=== PATIENT | male | born 1970 | race Caucasian/White ===

== ENCOUNTER 2017-09-16 21:51 | Inpatient (IN) | payer MEDICAID ==
[~2017-09-16] VITALS: Ht 180.3 cm; Wt 127.0 kg
[2017-09-16 21:51] VITALS: BP_SYST 149
--- NOTE | 2017-09-16 21:51 | NUR ---
PT BIBA TO BED 4 FOR EVALUATION. SEIZURE PADS TO BED DONE
--- NOTE | 2017-09-16 21:55 | NUR ---
Pt is awake, alert but slightly confused. Pt states he does not remember having a seizure. Report from EMT that pt [facility] two [facility] a [facility]. Tounge appears to have been bitten during seizure, light blood noted, no other signs of injury noted. Pain stated 5/10 from tounge. No signs of SOB or acute distress noted. Seizure pads applied. Will continue to monitor.
--- NOTE | 2017-09-16 22:37 | NUR ---
ER MD PEARL AT BEDSIDE EXAMINING PATIENT.
[2017-09-16 23:20] LABS: HEMATOCRIT 33.9 % (36-54); HEMOGLOBIN 10.5 g/dL (14.0-18.0); MEAN CORPUSCULAR HEMOGLOBIN 22 pg (27-31); MEAN CORPUSCULAR HGB CONC 31 % (32-36); MEAN CORPUSCULAR VOLUME 72 fL (79.0-98.0); PLATELET COUNT (AUTO) 140 K/uL (130-430); RED BLOOD CELL COUNT(AUTO) 4.71 MIL/uL (4.2-6.2); RED CELL DISTRIBUTION WIDTH 22.4 % (9.0-15.0); WHITE BLOOD COUNT (AUTO) 5.3 K/uL (4.8-10.8)
[2017-09-16 23:33] LABS: CALCIUM 9.9 mg/dL (8.4-11.0); CREATININE 1.01 mg/dL (0.55-1.30); POTASSIUM 3.8 mmol/L (3.5-5.1)
[2017-09-16 23:38] LABS: ALBUMIN 4.5 g/dL (3.4-4.8)
[2017-09-16 23:44] LABS: BARBITURATE, URINE NEGATIVE (NEG <=200); BENZODIAZEPINE, URINE NEGATIVE (NEG <=150); CANNABINOID, URINE NEGATIVE (NEG <=50); COCAINE, URINE NEGATIVE (NEG <=150); METHAMPHETAMINES SCREEN,URINE NEGATIVE (NEG <=500); OPIATE, URINE NEGATIVE (NEG <=100); PHENCYCLIDINE SCREEN,URINE NEGATIVE (NEG <=25); UR TRICYCLIC ANTIDEPRESSANTS NEGATIVE (NEG <=300); URINE AMPHETAMINE NEGATIVE (NEG <=500); URINE METHADONE NEGATIVE (NEG <=200); URINE OXYCODONE SCREEN NEGATIVE (NEG <=100); URINE PROPOXYPHENE SCREEN NEGATIVE (NEG <=300)
[2017-09-16 23:45] LABS: BILIRUBIN,URINE 2+ (NEGATIVE); CLARITY/URINE CLEAR (CLEAR); COLOR,URINE YELLOW (YELLOW); GLUCOSE,URINE NEGATIVE (NEGATIVE); KETONES,URINE 2+ (NEGATIVE); LEUKOCYTE ESTERASE ,URINE NEGATIVE (NEGATIVE); NITRITE, URINE NEGATIVE (NEGATIVE); PROTEIN URINE 2+ (NEGATIVE)
[2017-09-16 23:46] LABS: BLOOD, URINE TRACE (NEGATIVE)
[2017-09-16 23:51] LABS: BACTERIA,URINE FEW /HPF (None Seen); FINE GRANULAR CASTS,URINE 0-10 /LPF (None Seen); HYALINE CASTS, URINE 0-10 /LPF (None Seen); MUCUS,URINE 1+ /LPF (None Seen); RBC,URINE 0-3 /HPF (0-3)
[2017-09-17 00:02] LABS: BAND % (MANUAL) 1 % (0-6); BASOPHILS % (MANUAL) 0 % (0-2); EOSINOPHILS % (MANUAL) 0 % (0-7); LYMPHOCYTES % (MANUAL) 9 % (20-46); MONOCYTES % (MANUAL) 2 % (0-11)
[2017-09-17] MEDS ORDERED: levETIRAcetam 500 MG TABLET PO ONE (00:45)
--- NOTE | 2017-09-17 01:15 | NUR ---
Patient will be admitted to care of Dr. Duffy. Admitted to tele unit. VSS. Medicated with Keppra before transfer per MD order. Belongings list completed. Summary report printed. Report will be given at bedside.
--- NOTE | 2017-09-17 01:17 | NUR ---
ADMISSION NOTE Received patient from ER via gurney. Patient admitted with diagnosis of seizure. Patient is awake, alert, oriented X 4. Patient oriented to hospital room, call light, toileting, pain management and safety-teach back done. Patient informed that BHAVIK Dumont will be his nurse and that his room number is 134-B. Personal belongings checked and Belongings List documented. Call light within reach.
[2017-09-17 01:23] VITALS: BP_SYST 125
--- NOTE | 2017-09-17 01:57 | NUR ---
[facility] STAFF MEMBER NOTE 0117 RECEIVED PATIENT FROM THE ER VIA STRETCHER ACCOMPANIED BY TWO ER STAFF. PATIENT AWAKE, ALERT, AOX4 BUT STATES THAT HE IS HAVING SOME MEMORY LOSS AND CAN'T REMEMBER HOW HE GOT IN HERE AND HOW HE WENT TO RIDE THE AMBULANCE, OR IF HE HAD AN INCIDENCE OF FALL DURING THE SEIZURE. PATIENT DOES NOT DECLARE ANY FALL AT THE MOMENT NO FAMILY MEMBER TO CONFIRM. PATIENT STATES THAT HE IS CURRENTLY HAVING PAIN OF 8/10 ON THE ABDOMINAL AREA AND TO HIS TONGUE BECAUSE HE BIT HIS TONGUE DURING THE SEIZURE. 0130 MAINTAINED PATIENT ON ROOM 135, FOR OBSERVATION, OFFERED GOWN AND MAINTAINED SAFETY PRECAUTION MAINTAINED PADDED SIDE RAILS BED ON THE LOWEST POSITION, BED ALARM ON. ORIENTED TO THE UNIT POLICIES AND VERBALIZED UNDERSTANDING. ENCOURAGED RELAXATION AND DEEP BREATHING EXERCISES. ENCOURAGED TO REPORT ANY UNTOWARD S/SX NOTED. WILL CONTINUE TO MONITOR THE PATIENT, CALL LIGHT WITHIN REACH. OFFERED WATER FOR THE PATIENT AND REFUSED TO EAT FOR NOW. 0150 MOVED THE PATIENT TO ROOM 134 B
--- NOTE | 2017-09-17 01:59 | NUR ---
Paged Dr. Duffy Paged Dr. Duffy, dialed [phone], s/w Ewa.
--- NOTE | 2017-09-17 02:51 | NUR ---
RN ROUNDS PATIENT ON BED SLEEPING AND RESTING SEEMS TO BE NOT IN PAIN, STILL WAITING FOR MD'S ROXI WILL CONTINUE TO MONITOR.
--- NOTE | 2017-09-17 03:58 | NUR ---
Second Call for Dr. Duffy Second Call for Dr. Duffy, dialed [phone], s/w Ewa.
--- NOTE | 2017-09-17 04:00 | NUR ---
RN ROUNDS PATIENT AWAKE AD ALERT, STILL WITH PAIN OF 8/10 ON THE ABDOMEN AND ON THE BACK. PAGED MD WILL WAIT FOR THE CALL. PATIENT MAINTAINED ON SAFETY PRECAUTION. CALL LIGHT WITHIN REACH.
--- NOTE | 2017-09-17 04:17 | NUR ---
CALLED DR. CASTANEDA CALLED AND ORDERED PAIN MEDICATION AND CHANGE OF ORDERS. WILL CARRY OUT ORDERS AND NOTED.
[2017-09-17] MEDS ORDERED: HYDROcodone/ACETAMIN 5-325 MG TAB (NORCO/ VICODIN) PO PRN (04:30)
[2017-09-17] MEDS: HYDROcodone/ACETAMIN 10-325 MG TAB PO PRN ×2 (04:40→10:41)
[2017-09-17] MEDS: LORazepam 2 MG/ML VIAL IVP PRN ×2 (04:41→21:27)
--- NOTE | 2017-09-17 06:20 | NUR ---
Closing notes Pt asleep, easily arousable. No s/s of distress or discomfort noted. Pt denies any pain at this time. Seizure precaution maintained in place. Call light within reach. To endorse to am nurse.
--- NOTE | 2017-09-17 07:40 | NUR ---
AM rounds Patient resting in bed, awake, alert and oriented x4, denies pain, assessment complete, patient stated that he had a seizure prior to admission and whenever he has a seizure he suffers from memory loss as well, patient also stated that he hasn't taken his medications in about 5 months as well, discussed the plan of care with the patient, educated him on seizure precautions and fall precautions and educated him on how to call for assistance using the call light system, patient verbalized understanding at this time, call light placed within reach, fall, aspiration and seizure precautions in place, continuing to monitor.
--- NOTE | 2017-09-17 08:28 | NUR ---
RN Rounds/Medication Patient resting in bed, awake, denies pain, educated on medication, uses and potential side effects, patient verbalized understanding and tolerated well, provided the patient with milk and orange juice per his request, no other needs at this time, bed in lowest position, three side rails up, bed alarm on, call light within reach, fall and seizure precautions in place, continuing to monitor.
[2017-09-17 08:32] VITALS: BP_SYST 147
[2017-09-17] MEDS ORDERED: levETIRAcetam 500 MG TABLET PO SCH (09:00)
--- NOTE | 2017-09-17 10:44 | NUR ---
Rounds/pain medication Patient resting in bed, states that he has a stomachache and headache, educated the patient on pain management and on pain medication and potential side effects, patient verbalzied understanding and tolerated well. Spoke with the patient about what precipitates his seizures, he stated that he gets a funny taste in his mouth and can small an odd smell, I informed the patient to call me if this happens and that we do have medication available for seizures if this were to happen, patient verbalized understanding at this time, bed in lowest position, three side rails up, bed alarm on, bed close to nurse's station, fall, aspiration, and seizure precautions in place, continuing to monitor.
[2017-09-17 12:12] VITALS: BP_SYST 119
--- NOTE | 2017-09-17 13:10 | NUR ---
RN Rounds patient resting in bed, awake, denies pain, stable condition, patient requesting to speak with director social welfare for assistance, will inform Tanker Service Attendant/Case Management, patient has no other needs at this time, bed in lowest position, three side rails up, bed alarm on, call light within reach, fall, aspiration and seizure precautions in place, continuing to monitor.
--- NOTE | 2017-09-17 15:18 | NUR ---
RN Rounds patient resting in bed, denies pain at this time, gave patient hospital phone to use to call his girlfriend and update her, Manager Research Development met with the patient at bedside to discuss homeless detention options and possible transportation as well once MD is ready to discharge the patient, patient has no other needs at this time, continuing to monitor him, bed in lowest position, three side rails up, bed alarm on, fall, aspiration and seizure precautions in place.
[2017-09-17 16:17] VITALS: BP_SYST 113
--- NOTE | 2017-09-17 16:55 | NUR ---
Dr. Duffy rounds/med list requested for me to call the patient's preferred pharmacy for current list of medications. Called [facility] in [place] (on [address]) [phone] for patient information, fax received with patient med list and shown to Dr. Duffy who will go ahead and give the medication (Dilantin 100mg) to the patient while he is here and MD ordered a Neuro Consult as well, will follow up.
--- NOTE | 2017-09-17 17:30 | NUR ---
Called pharmacy to verify one time dose of Dilantin 100mg, will follow up as needed. Addendum: 09/17/17 at 1818 by Farhan Atkinson RN Called Pharmacy again to verify medication, will follow up as needed.
[2017-09-17] MEDS ORDERED: PHENYTOIN 100 MG CAPSULE PO ONE (18:30)
--- NOTE | 2017-09-17 18:44 | NUR ---
Closing note/x1 dose Dilantin Patient resting in bed, awake, denies pain, educated on seizure medication and potential side effects, patient states he is familiar with this medication as he was taking it before, patient tolerated well, all needs met, will endorse report to NOC shift nurse, bed in lowest position, three side rails up, bed alarm on, call light within reach, fall, aspiration and seizure precautions in place.
--- NOTE | 2017-09-17 19:20 | NUR ---
rn opening note Delayed charting due to patient care. Report was endorsed by day nurse at bed side. Patient is awake and alert, laying in bed, no signs of any distress, breathing is equal and non labored. Patient has call light with him, educated to use for assistance. Patient has seizure precautions in place. Will continue to monitor.
[2017-09-17 20:00] VITALS: BP_SYST 135
[2017-09-17] MEDS: PHENYTOIN 100 MG CAPSULE PO SCH (21:23)
--- NOTE | 2017-09-17 21:31 | NUR ---
Medication/agitation Addendum: 09/18/17 at 0029 by Kanwal Rivera RN Delayed charting due to patient care.Patients scheduled medication given per order. Patient states he is having some anxiety medicated per order. Educated patient on seizure precautions, patient states he gets a weird taste in his mouth before having a seizure, educated to call for assistance if this happens. Patient has no other needs at this time.All safety precautions in place. Call light is with him.Will continue to monitor.
--- NOTE | 2017-09-17 22:57 | NUR ---
CONSULT CONSULT CALLED FOR DR. MONSTER Santana SPOKE WITH LIONEL CASTELLANOS REASON FOR CONSULT: SEIZURES REQUESTING CONSULT: DR. PATY HAGEN I CALLED [phone]
--- NOTE | 2017-09-17 23:45 | NUR ---
RN rounding Patient is awake and laying in bed with no signs of any distress, breathing is equal and non labored. Patient has call light with him, educated to use for assistance. Patient is stable. Patient educated on NPO at 0000 for Abdominal US in am. Patient verbalized understanding. Patient has no other needs at this time. Will continue to monitor.
[2017-09-18 00:34] VITALS: BP_SYST 139
--- NOTE | 2017-09-18 01:15 | NUR ---
RN rounding Patient appears to be resting with both eyes closed visible chest rise and fall, no signs of any distress, breathing is equal and non labored. Patient has call light with him, all safety precautions in place. Patient is stable will continue to monitor hourly.
--- NOTE | 2017-09-18 03:20 | NUR ---
rn rounding Patient is laying in bed no signs of any distress, breathing is equal and non labored. Patient has all safety precautions,call light is with him, educated brickmason contractor light for assistance, educated to call if patient has any signs of a seizure precautions . Patient is stable with no other needs at this time. Will continue to monitor.
--- NOTE | 2017-09-18 05:44 | NUR ---
RN rounding Patient is awake and laying in bed no signs of any distress, his breathing is equal and non labored. Patient requesting to be bathed later on in the morning, educated i will let the DRILLING FLUIDS SPECIALIST know so they can endorse it to the next shift. Patient has call light with him educated to use for assistance. Patient is stable with no other needs at this time. Will continue to monitor.
--- NOTE | 2017-09-18 06:50 | NUR ---
rn closing note Patient appears to be resting with both eyes closed no signs of any distress, breathing is equal and non labored. Patient has call light with him, all safety precautions and seizure precautions in place. Patient is stable has no other needs at this time. Will endorse report to oncoming day nurse at bedside.
[2017-09-18 07:34] LABS: CALCIUM 9.5 mg/dL (8.4-11.0); CREATININE 0.6 mg/dL (0.55-1.30); PHENYTOIN (DILANTIN) 3.4 ug/mL (10.0-20.0); POTASSIUM 3.5 mmol/L (3.5-5.1); TOTAL BILIRUBIN 1.1 mg/dL (0.0-1.0)
[2017-09-18 07:35] LABS: BASOPHILS # (AUTO) 0.1 K/uL (0.0-0.2); BASOPHILS % (AUTO) 1.1 % (0.0-2.0); EOSINOPHILS # (AUTO) 0.2 K/uL (0.0-0.4); EOSINOPHILS % (AUTO) 3.3 % (0.0-4.0); HEMOGLOBIN 10.3 g/dL (14.0-18.0); LYMPHOCYTES # (AUTO) 1.2 K/uL (1.0-5.5); LYMPHOCYTES % (AUTO) 25.6 % (20.5-51.5); MEAN CORPUSCULAR HEMOGLOBIN 22 pg (27-31); MEAN CORPUSCULAR HGB CONC 30 % (32-36); MEAN CORPUSCULAR VOLUME 73 fL (79.0-98.0); MONOCYTES # (AUTO) 0.6 K/uL (0.0-1.0); NEUTROPHILS # (AUTO) 2.6 K/uL (1.8-7.7); PLATELET COUNT (AUTO) 168 K/uL (130-430); RED BLOOD CELL COUNT(AUTO) 4.67 MIL/uL (4.2-6.2); RED CELL DISTRIBUTION WIDTH 21.9 % (9.0-15.0); WHITE BLOOD COUNT (AUTO) 4.7 K/uL (4.8-10.8)
--- NOTE | 2017-09-18 07:57 | NUR ---
AM ROUNDS: Patient complaining of pain. Will medicate as ordered.
[2017-09-18 08:20] VITALS: BP_SYST 132
[2017-09-18] MEDS: HYDROcodone/ACETAMIN 10-325 MG TAB PO PRN (08:59)
[2017-09-18] MEDS: PHENYTOIN 100 MG CAPSULE PO SCH (08:59)
--- NOTE | 2017-09-18 09:18 | NUR ---
Nutrition Update: 46 year old male admit with seizures and anxiety. Current diet: regular Current weight: 127kg, BMI 39kg/m2 Joey scale: 16 RD to assess per nutrition care standards. [place], RD
[2017-09-18] MEDS: LORazepam 2 MG/ML VIAL IVP PRN (10:08)
--- NOTE | 2017-09-18 10:21 | NUR ---
ROUNDS: Patient complaining of anxiety. Medicated as ordered. Will continue to monitor.
[2017-09-18 12:00] VITALS: BP_SYST 170
--- NOTE | 2017-09-18 12:11 | NUR ---
PATIENT RESTING: Patient resting quietly. No acute distress noted. Will continue to monitor.
--- NOTE | 2017-09-18 14:36 | NUR ---
PATIENT RESTING: Patient resting quietly. No acute distress noted. Will continue to monitor.
--- NOTE | 2017-09-18 15:55 | NUR ---
PATIENT RESTING: Patient resting quietly. No acute distress noted. Will continue to monitor.
[2017-09-18 16:00] VITALS: BP_SYST 124
[2017-09-18 16:11] VITALS: BP_SYST 152
--- NOTE | 2017-09-18 16:39 | NUR ---
D/C Patient Patient given medication reconciliation form and D/C instructions. Exit Care provided. Patient verbalized understanding. MD discussed with patient the results and treatment provided. Ambulatory with steady gait for discharge to home. Patient in stable condition, ID band removed. IV catheter removed, intact and dressing applied, no active bleeding. Rx of dilantin, multivitamin, b12, iron given. Patient educated on pain management. All belongings sent with patient.
[2017-09-19 08:21] LABS: HEPATITIS A AB, IgM Negative (Negative); HEPATITIS B CORE AB, IgM Negative (Negative); HEPATITIS B SURFACE AG Negative (Negative)
== END 2017-09-18 16:39 | disposition home or self-care (01) | DRG 53 ==
LOC: SED 21:51 → EDSEX 21:51 → STU 09-17 00:34
PROVIDERS: ADMIT Internal Medicine; ATTEND Internal Medicine
DX: G40.89 Other seizures (principal); K70.10 Alcoholic hepatitis without ascites; F41.9 Anxiety disorder, unspecified; D50.9 Iron deficiency anemia, unspecified; Z98.84 Bariatric surgery status; Z59.0 Homelessness
CPT/HCPCS: 36415; 76700-TC; 80053; 80074; 80185-TC; 80307; 81000-TC; 83690-TC; 83735-TC; 85007; 85025; 85027; 97116-GP; 99285; J2060